=== PATIENT | female | born 1985 | race Caucasian/White ===

== ENCOUNTER 2016-06-08 15:38 | Emergency (ER) | payer SELFPAY ==
[~2016-06-08 15:38] MED LIST: CLON0.1T PO; DEXT30CA6 PO; LORA1TAB PO; PHEN100C PO
--- NOTE | 2016-06-08 15:57 | ED.ADGEN ---
Past History Past Medical History: Anxiety, Asthma, Other Past Surgical History: Other Alcohol Use: None Drug Use: Marijuana Adult General HPI HPI Patient is a 30-year-old female presents emergency department by EMS for a seizure. She has a known seizure disorder. She has not been taking her Dilantin due to cost. She did not sustain any injury, urinary incontinence, or tongue biting during today seizures. She does report that she had significant headache earlier today prior to the seizure. Review of Systems Review of Systems Constitutional: Denies fever or chills [] Eyes: Denies change in visual acuity, redness, or eye pain [] HENT: Denies nasal congestion or sore throat [] Respiratory: Denies cough or shortness of breath [] Cardiovascular: No additional information not addressed in HPI [] GI: Denies abdominal pain, nausea, vomiting, bloody stools or diarrhea [] : Denies dysuria or hematuria [] Musculoskeletal: Denies back pain or joint pain [] Integument: Denies rash or skin lesions [] Neurologic: Denies headache, focal weakness or sensory changes [] Endocrine: Denies polyuria or polydipsia [] Current Medications Current Medications Current Medications Medications (Trade) Dose Ordered Sig/Wilton Start Time Stop Time Status Last Admin Dose Admin Diphenhydramine HCl 25 mg 25 mg 1X ONCE 06/08/16 16:30 06/08/16 16:31 DC 06/08/16 16:10 25 MG Prochlorperazine Edisylate (Compazine) 10 mg 1X ONCE 06/08/16 16:30 06/08/16 16:31 DC 06/08/16 16:10 10 MG Sodium Chloride (Iv Sodium Chloride 0.9% 1,000ml) 1,000 ml @ 1,000 mls/hr 1X ONCE 06/08/16 16:30 06/08/16 17:29 06/08/16 16:10 1,000 MLS/HR Allergies Allergies Allergies Coded Allergies Type Severity Reaction Last Updated Verified No Known Drug Allergies 02/26/14 No Physical Exam Physical Exam Constitutional: Well developed, well nourished, no acute distress, non-toxic appearance. [] HENT: Normocephalic, atraumatic, bilateral external ears normal, oropharynx moist, no oral exudates, nose normal. [] Eyes: PERRLA, EOMI, conjunctiva normal, no discharge. [] Neck: Normal range of motion, no tenderness, supple, no stridor. [] Cardiovascular:Heart rate regular rhythm, no murmur [] Lungs & Thorax: Bilateral breath sounds clear to auscultation [] Abdomen: Bowel sounds normal, soft, no tenderness, no masses, no pulsatile masses. [] Skin: Warm, dry, no erythema, no rash. [] Back: No tenderness, no CVA tenderness. [] Extremities: No tenderness, no cyanosis, no clubbing, ROM intact, no edema. [] Neurologic: Alert and oriented X 3, normal motor function, normal sensory function, no focal deficits noted. [] Psychologic: Affect normal, judgement normal, mood normal. [] Current Patient Data Vital Signs Vital Signs Date Time Temp Pulse Resp B/P Pulse Ox O2 Delivery O2 Flow Rate FiO2 06/08/16 15:40 98.0 104 20 97 Room Air EKG EKG [] Radiology/Procedures Radiology/Procedures [] Course & Med Decision Making Course & Med Decision Making Pertinent Labs and Imaging studies reviewed. (See chart for details) Patient was given IV fluids. She is at her baseline. Unfortunately, I do not have much more to offer her other than to reinforce the importance of compliance. [] Final Impression Final Impression Seizure [] Problems: Dragon Disclaimer Dragon Disclaimer This electronic medical record was generated, in whole or in part, using a voice recognition dictation system. MARK GLASGOW MD Jun 08, 2016 15:57
[2016-06-08] MEDS ORDERED: PROCHLORPERAZINE 10 MG/2 ML VIAL. IV ONE (16:30)
[2016-06-08] MEDS ORDERED: DIPHENHYDRAMINE 50 MG/ML VIAL IVP ONE (16:30)
[2016-06-08] MEDS ORDERED: IV NORMAL SALINE 1,000ML 1,000 ML IV ONE (16:30)
[2016-06-08 16:40] VITALS: BP 110/62
== END 2016-06-08 16:51 | disposition home or self-care (01) ==
LOC: ER 15:38
DX: G40.909 Epilepsy, unspecified, not intractable, without status epilepticus (principal); J45.909 Unspecified asthma, uncomplicated; F41.9 Anxiety disorder, unspecified; F12.10 Cannabis abuse, uncomplicated
CPT/HCPCS: 96361; 96374; 96375; 99284; J0780; J1200; J7030

== ENCOUNTER 2020-08-18 20:03 | Emergency (ER) | payer SELFPAY ==
[~2020-08-18] VITALS: Ht 161.3 cm; Wt 80.9 kg
[~2020-08-18 20:03] MED LIST changes: +LORA-254 PO; -LORA1TAB PO
[2020-08-18] MEDS ORDERED: ONDANSETRON PF 4 MG/2 ML VIAL. IVP ONE (20:45)
[2020-08-18] MEDS ORDERED: MORPHINE SULFATE 4 MG/ML DISP.SYRIN. IV ONE (20:45)
[2020-08-18] MEDS ORDERED: IV NORMAL SALINE 1,000ML 1,000 ML IV ONE (20:45)
--- NOTE | 2020-08-18 20:47 | PHYS DOC ---
Past History Past Medical History: Anxiety, Asthma, Seizure, Other Past Surgical History: Cancer Surgery, Tubal ligation, Other Alcohol Use: None Drug Use: Marijuana General Adult EDM: Chief Complaint: FLANK PAIN HPI: HPI: 34-year-old female presents with left-sided flank pain. Patient had some pain yesterday, but is much worse tonight. It is left lower quadrant as well as left flank. It is a stabbing sensation 7 out of 10. She also had increased urinary frequency and dysuria yesterday. Today she feels like she has urinary retention. She has been taking Azo without relief. Patient denies history of kidney stones. She has had UTIs in the past. She denies fever or chills. She has had nausea and vomiting due to the pain. Review of Systems: Review of Systems: Constitutional: Denies fever or chills Eyes: Denies change in visual acuity HENT: Denies nasal congestion or sore throat Respiratory: Denies cough or shortness of breath Cardiovascular: Denies chest pain or edema GI: Left lower quadrant abdominal pain, nausea, vomiting. Denies bloody stools or diarrhea : Dysuria, urinary retention Musculoskeletal: Denies back pain or joint pain Integument: Denies rash Neurologic: Denies headache, focal weakness or sensory changes Endocrine: Denies polyuria or polydipsia Lymphatic: Denies swollen glands Psychiatric: Denies depression or anxiety Current Medications: Current Meds: Current Medications Medications (Trade) Dose Ordered Sig/Wilton Start Time Stop Time Status Last Admin Dose Admin Morphine Sulfate (Morphine 4mg Syringe) 4 mg 1X ONCE 08/18/20 20:45 08/18/20 20:46 Ondansetron HCl (Zofran) 4 mg 1X ONCE 08/18/20 20:45 08/18/20 20:46 Sodium Chloride 1,000 ml @ 1,000 mls/hr 1X ONCE 08/18/20 20:45 08/18/20 21:44 Allergies: Allergies: Allergies Coded Allergies Type Severity Reaction Last Updated Verified No Known Drug Allergies 02/26/14 No Physical Exam: PE: Constitutional: Well developed, well nourished, mild acute distress, non-toxic appearance. [] HENT: Normocephalic, atraumatic, bilateral external ears normal, oropharynx moist, no oral exudates, nose normal. [] Eyes: PERRLA, EOMI, conjunctiva normal, no discharge. [] Neck: Normal range of motion, no tenderness, supple, no stridor. [] Cardiovascular:Heart rate regular rhythm, no murmur [] Lungs & Thorax: Bilateral breath sounds clear to auscultation [] Abdomen: Bowel sounds normal, soft, left lower quadrant tenderness, no masses, no pulsatile masses. [] Skin: Warm, dry, no erythema, no rash. [] Back: No tenderness, bilateral CVA tenderness. [] Extremities: No tenderness, no cyanosis, no clubbing, ROM intact, no edema. [] Neurologic: Alert and oriented X 3, normal motor function, normal sensory function, no focal deficits noted. [] Psychologic: Affect normal, judgement normal, mood normal. [] Current Patient Data: Vital Signs: Vital Signs Date Time Temp Pulse Resp B/P (MAP) Pulse Ox O2 Delivery O2 Flow Rate FiO2 08/18/20 20:09 97.9 75 20 158/100 (119) 99 Room Air EKG: EKG: [] Radiology/Procedures: Radiology/Procedures: [] Impressions: Exam: CT of abdomen and pelvis without contrast INDICATION: Left flank pain TECHNIQUE: Sequential axial images through the abdomen and pelvis obtained without IV contrast. Sagittal and coronal reformatted images were reconstructed from the axial data and reviewed. Exposure: One or more of the following in the visualized dose reduction techniques were utilized for this examination: 1. Automated exposure control 2. Adjustment of the MA and/or KV according to patient size 3. Use of iterative of reconstructive technique Comparisons: None FINDINGS: Heart size is normal. No pericardial effusion. Visualized lung bases are clear. No pleural effusion. Evaluation of solid organs is limited secondary to noncontrast technique. Liver, spleen, pancreas, gallbladder and adrenals are unremarkable. There is a mild left-sided hydronephrosis. There is a nonobstructing left renal calculi noted. No ureteral calculus is not identified. Bladder is decompressed not well evaluated. Uterus is not enlarged. No abnormal adnexal mass. Large and small bowel are unremarkable. Large amount stool is noted in the colon. Appendix is normal. No free intra-abdominal air or fluid. No obstruction. Abdominal aorta has a normal course and caliber. No enlarged intra-abdominal lymph nodes are identified. No suspicious osseous lesions or acute fractures. IMPRESSION: 1. There is mild left-sided perinephric stranding and hydronephrosis. An obstructing stone is not identified. Correlate with urinalysis for infection. 2. Nonobstructing left renal calculi are seen. Electronically signed by: Zeb Kelley MD (08/18/2020 9:04 PM) [facility] DICTATED AND SIGNED BY: ZEB KELLEY MD DATE: 08/18/202053 CC: RACHAEL BRADEN DO; PCP,NO ~MTH0 0 Heart Score: C/O Chest Pain: N/A Risk Factors: Risk Factors: DM, Current or recent (<one month) smoker, HTN, HLP, family history of CAD, obesity. Risk Scores: Score 0 - 3: 2.5% MACE over next 6 weeks - Discharge Home Score 4 - 6: 20.3% MACE over next 6 weeks - Admit for Clinical Observation Score 7 - 10: 72.7% MACE over next 6 weeks - Early Invasive Strategies Course & Med Decision Making: Course & Med Decision Making Pertinent Labs and Imaging studies reviewed. (See chart for details) The patient's urinalysis shows significant blood positive leukocyte esterase, and few bacteria. Her CT scan does show perinephric stranding. There is no obstructing stone seen. The patient has elevated white count of 16. I will give the patient a gram of Rocephin in the ED and discharge her with 5 more days of levofloxacin 750 daily. Since the pharmacies around her do not seem to carry levofloxacin 750 I will discharge her with 500 twice daily for 5 days. The patient's pain has improved significantly after 4 mg of morphine. I will discharge her with [place] 5/325. She is stable for discharge at this time. [] Dragon Disclaimer: Dragon Disclaimer: This electronic medical record was generated, in whole or in part, using a voice recognition dictation system. Departure Departure: Impression: Primary Impression: Pyelonephritis Disposition: HOME / SELF CARE / HOMELESS Condition: STABLE Referrals: PCP,COLTON (PCP) Patient Instructions: Pyelonephritis, Adult, [id number] Levofloxacin (LEVOFLOXACIN) 500 Mg Tablet 1 TAB PO BID for pyelonephritis for 5 Days, #10 TAB Prov: RACHAEL BRADEN DO 08/18/20 Hydrocodone/Acetaminophen (Hydrocodone-Acetamin 5-325 mg) 1 Each Tablet 1 EACH PO Q4-6HRS PRN for PAIN, #10 TAB Prov: RACHAEL BRADEN DO 08/18/20 RACHAEL BRADEN DO Aug 18, 2020 20:47
[2020-08-18 21:06] LABS: BILIRUBIN,URINE NEG (NEG); CLARITY,URINE HAZY; COLOR,URINE YELLOW; GLUCOSE,URINE NEG (NEG); UROBILINOGEN,URINE 0.2 mg/dL (0.2 mg/dL)
--- NOTE | 2020-08-18 21:06 | RAD ---
Exam: CT of abdomen and pelvis without contrast INDICATION: Left flank pain TECHNIQUE: Sequential axial images through the abdomen and pelvis obtained without IV contrast. Sagit jett and coronal reformatted images were reconstructed from the axial data and reviewed. Exposure: One or more of the following in the visualized dose reduction techniques were utilized for this examination: 1. Automated exposure control 2. Adjustment of the MA and/or KV according to patient size 3. Use of iterative of reconstructive technique Comparisons: None FINDINGS: Heart size is normal. No pericardial effusion. Visualized lung bases are clear. No pleural effusion. Evaluation of solid organs is limited secondary to noncontrast technique. Liver, spleen, pancreas, gallbladder and adrenals are unremarkable. There is a mild left-sided hydronephrosis. There is a nonobstructing left renal calculi noted. No ure teral calculus is not identified. Bladder is decompressed not well evaluated. Uterus is not enlarged. No abnormal adnexal mass. Large and small bowel are unremarkable. Large amount stool is noted in the colon. Appendix is normal. No free intra-abdominal air or fluid. No obstruction. Abdominal aorta has a normal course and caliber. No enlarged intra-abdominal lymph nodes are identified. No suspicious osseous lesions or acute fractures. IMPRESSION: 1. There is mild left-sided perinephric stranding and hydronephrosis. An obstructing stone is not id entified. Correlate with urinalysis for infection. 2. Nonobstructing left renal calculi are seen. Electronically signed by: Zeb Villaseñor MD (08/18/2020 9:04 PM) [facility]
[2020-08-18 21:07] LABS: BACTERIA,URINE FEW /HPF (0-FEW); NITRITE,URINE NEG (NEG); RBC,URINE 20-40 /HPF (0-2); SQUAMOUS EPITHELIAL CELL,UR OCC /LPF
[2020-08-18 21:19] LABS: CALCIUM 8.8 mg/dL (8.5-10.1); CREATININE 0.9 mg/dL (0.6-1.0); GFR 70.8; POTASSIUM 3.7 mmol/L (3.5-5.1)
[2020-08-18 21:20] LABS: BASO # 0.1 x10^3/uL (0.0-0.2); BASO % 1 % (0-3); EOS # 0.4 x10^3/uL (0.0-0.7); EOS % 2 % (0-3); HEMATOCRIT 42.6 % (36.0-47.0); HEMOGLOBIN 14.3 g/dL (12.0-15.5); LYMPH # 3.4 x10^3/uL (1.0-4.8); LYMPH % 21 % (24-48); MEAN CORPUSCULAR HEMOGLOBIN 31 pg (25-35); MEAN CORPUSCULAR HGB CONC 34 g/dL (31-37); MEAN CORPUSCULAR VOLUME 92 fL (79-100); MONO # 1.2 x10^3/uL (0.0-1.1); MONO % 7 % (0-9); NEUT # 11.2 x10^3uL (1.8-7.7); NEUT % 69 % (31-73); PLATELET COUNT 323 x10^3/uL (140-400); RED BLOOD COUNT 4.62 x10^6/uL (3.50-5.40); RED CELL DISTRIBUTION WIDTH 12.9 % (11.5-14.5); WHITE BLOOD COUNT 16.3 x10^3/uL (4.0-11.0)
[2020-08-18 21:25] LABS: ALBUMIN 3.6 g/dL (3.4-5.0); TOTAL BILIRUBIN 0.2 mg/dL (0.2-1.0); TOTAL PROTEIN 7.2 g/dL (6.4-8.2)
[2020-08-18] MEDS ORDERED: HYDR-2759 PO (21:52)
[2020-08-18] MEDS ORDERED: LEVO500T8 PO (21:52)
[2020-08-18] MEDS ORDERED: cefTRIAXone SODIUM 1 GM VIAL ONE (22:10)
[2020-08-18] MEDS ORDERED: IV NORMAL SALINE 50ML 50 ML ONE (22:10)
[2020-08-18] MEDS ORDERED: diphenhydrAMINE 50 MG/ML VIAL IVP ONE (22:45)
[2020-08-18 22:59] VITALS: BP 140/90
== END 2020-08-18 23:05 | disposition home or self-care (01) ==
LOC: ER 20:03
DX: N12 Tubulo-interstitial nephritis, not specified as acute or chronic (principal); J45.909 Unspecified asthma, uncomplicated; F12.10 Cannabis abuse, uncomplicated; Z98.51 Tubal ligation status
CPT/HCPCS: 36415; 74176; 80053; 81001; 81025; 85025; 87086; 96361; 96374; 96375; 99284; J0696; J1200; J2270; J2405; J7030